=== PATIENT | female | born 1945 | race Caucasian/White ===

== ENCOUNTER → 2018-04-04 22:10 | Outpatient (CLI) | payer BC | END | disposition home or self-care (01) | LOC: D.MAMMO 13:00 | DX: Z12.31 Encounter for screening mammogram for malignant neoplasm of breast (principal) ==

== ENCOUNTER → 2018-05-07 16:51 | Outpatient (CLI) | payer BC | END | disposition home or self-care (01) | LOC: D.MAMMO 14:00 | DX: R92.8 Other abnormal and inconclusive findings on diagnostic imaging of breast (principal) ==

== ENCOUNTER 2020-10-06 10:45 | Outpatient (CLI) | payer BC | END 2020-10-06 23:59 | disposition home or self-care (01) | LOC: D.MAMMO 10:45 | PROVIDERS: ATTEND Family Medicine | DX: Z12.31 Encounter for screening mammogram for malignant neoplasm of breast (principal) ==